=== PATIENT | female | born 1955 | race Caucasian/White ===

== ENCOUNTER 2021-01-27 17:06 | Emergency (ER) | payer MEDICARE, OTHER ==
[~2021-01-27] VITALS: Ht 162.6 cm; Wt 72.6 kg
[2021-01-27 17:10] VITALS: BP 197/116
[2021-01-27] MEDS ORDERED: TDAP [DIPH/PERTUSSIS/TET] 0.5 ML VIAL IM ONE ×2 (17:27→17:30)
[2021-01-27] MEDS ORDERED: BUPIVACAINE 0.5 % PF 150 MG/30 ML VIAL ONE (17:27)
[2021-01-27] MEDS ORDERED: LIDOCAINE /MPF 1% VIAL 5 ML VIAL ONE (17:27)
[2021-01-27] MEDS ORDERED: LIDOCAINE 1% INJ 50 ML MDV IJ ONE (17:30)
[2021-01-27] MEDS ORDERED: BUPIVACAINE 0.5 % PF 150 MG/30 ML VIAL IJ ONE (17:30)
== END 2021-01-27 18:38 | disposition home or self-care (01) ==
LOC: ER 17:08
DX: S61.012A Laceration without foreign body of left thumb without damage to nail, initial encounter (principal); E11.9 Type 2 diabetes mellitus without complications; I10 Essential (primary) hypertension; Z23 Encounter for immunization; W22.8XXA Striking against or struck by other objects, initial encounter; Y93.89 Activity, other specified; Y92.89 Other specified places as the place of occurrence of the external cause; Y99.8 Other external cause status
CPT/HCPCS: 12002; 73140; 90471; 90715; 99283; A6403 ×2; J3490 ×2

== ENCOUNTER 2021-02-06 19:02 | Emergency (ER) | payer MEDICARE, OTHER ==
[~2021-02-06] VITALS: Ht 165.1 cm; Wt 72.6 kg
[2021-02-06 19:10] VITALS: BP 163/96
== END 2021-02-06 19:40 | disposition home or self-care (01) ==
LOC: ER 19:05
DX: S61.012D Laceration without foreign body of left thumb without damage to nail, subsequent encounter (principal); I10 Essential (primary) hypertension; E11.9 Type 2 diabetes mellitus without complications; X58.XXXD Exposure to other specified factors, subsequent encounter